=== PATIENT | male | born 1965 ===

== ENCOUNTER 2018-12-23 12:22 | Outpatient (REF) | payer OTHER, SELFPAY ==
[2018-12-23 21:40] LABS: Anion Gap 13.5 mmol/L (3-11); BUN 17 mg/dL (7-18); CO2 26.5 mmol/L (21.0-32.0); CREATININE 0.92 mg/dL (0.70-1.30); Calcium 9.1 mg/dL (8.5-10.1); Calculated LDL 148; Chloride 101 mmol/L (98-107); Cholesterol 222 mg/dL (50-200); Glucose 89 mg/dL (70-100); HDL Cholesterol 49 mg/dL (40-60); Potassium 3.6 mmol/L (3.5-5.1); Sodium 141 mmol/L (136-145); Triglyceride 129 mg/dL (30-150)
== END 2018-12-23 12:42 ==
LOC: NCHCN 12:22
PROVIDERS: PCP Internal Medicine; Visit Provider Internal Medicine
DX: I10 Essential (primary) hypertension (principal); Z13.220 Encounter for screening for lipoid disorders
CPT/HCPCS: 80048; 80061; 83721

== ENCOUNTER 2019-09-11 16:36 | Outpatient (REF) | payer OTHER, SELFPAY ==
[2019-09-11 21:01] LABS: Hemoglobin A1C 5.5 % (3.8-5.6)
[2019-09-11 21:28] LABS: Anion Gap 10.2 mmol/L (3-11); BUN 17 mg/dL (7-18); CO2 26.8 mmol/L (21.0-32.0); CREATININE 0.81 mg/dL (0.70-1.30); Calcium 8.7 mg/dL (8.5-10.1); Chloride 104 mmol/L (98-107); Glucose 103 mg/dL (74-106); Magnesium 1.8 mg/dL (1.8-2.4); Potassium 3.9 mmol/L (3.5-5.1); Sodium 141 mmol/L (136-145); Vitamin B12 323 pg/mL (193-986)
== END 2019-09-11 16:56 ==
LOC: NCHCN 16:36
PROVIDERS: PCP Internal Medicine; Visit Provider Nurse Practitioner Family
DX: I10 Essential (primary) hypertension (principal); Z13.1 Encounter for screening for diabetes mellitus; Z51.81 Encounter for therapeutic drug level monitoring
CPT/HCPCS: 80048; 82607; 83036; 83735

== ENCOUNTER 2020-02-12 14:22 | Outpatient (REF) | payer OTHER, SELFPAY ==
[2020-02-14 18:14] LABS: SARS-CoV-2 RNA Undetected (Undetected); SARS-CoV-2 Specimen Source Nasopharynx
== END 2020-02-12 14:42 ==
LOC: NCHCN 14:22
PROVIDERS: PCP Internal Medicine; Visit Provider Nurse Practitioner Family
DX: J34.89 Other specified disorders of nose and nasal sinuses (principal)
CPT/HCPCS: U0003

== ENCOUNTER 2020-07-23 13:54 | Outpatient (REF) | payer OTHER, SELFPAY ==
[2020-07-23 21:19] LABS: ALT 39 U/L (16-63); AST 18 U/L (15-37); Alkaline Phosphatase 51 U/L (46-116); Anion Gap 9.4 mmol/L (3-11); BUN 17 mg/dL (7-18); Bilirubin, Total 0.9 mg/dL (0.2-1.0); CO2 23.6 mmol/L (21.0-32.0); CREATININE 0.94 mg/dL (0.70-1.30); Calcium 9.1 mg/dL (8.5-10.1); Chloride 104 mmol/L (98-107); Glucose 97 mg/dL (74-106); Magnesium 1.9 mg/dL (1.8-2.4); Potassium 3.7 mmol/L (3.5-5.1); Sodium 137 mmol/L (136-145); Total Protein 7.3 g/dL (6.4-8.2)
[2020-07-23 22:02] LABS: Calculated LDL 137 mg/dL (<100); Cholesterol 231 mg/dL (<200); HDL Cholesterol 48 mg/dL (40-60); Triglyceride 233 mg/dL (<150); Vitamin B12 425 pg/mL (193-986)
== END 2020-07-23 14:14 ==
LOC: NCHCN 13:54
PROVIDERS: PCP Internal Medicine; Visit Provider Nurse Practitioner Family
DX: I10 Essential (primary) hypertension (principal); K21.9 Gastro-esophageal reflux disease without esophagitis; F41.1 Generalized anxiety disorder; F17.223 Nicotine dependence, chewing tobacco, with withdrawal; Z13.220 Encounter for screening for lipoid disorders
CPT/HCPCS: 80053; 80061; 82607; 83735

== ENCOUNTER 2021-02-04 21:13 | Outpatient (REF) | payer BC, SELFPAY ==
[2021-02-04 22:42] LABS: Hemoglobin A1C 5.6 % (<5.7)
[2021-02-04 22:48] LABS: ALT 29 U/L (16-63); AST 23 U/L (15-37); Albumin 3.8 g/dL (3.4-5.0); Alkaline Phosphatase 48 U/L (46-116); Anion Gap 10.6 mmol/L (3-11); BUN 20 mg/dL (7-18); Bilirubin, Total 0.9 mg/dL (0.2-1.0); CO2 25.4 mmol/L (21.0-32.0); CREATININE 1.1 mg/dL (0.70-1.30); Calcium 8.8 mg/dL (8.5-10.1); Calculated LDL 59 mg/dL (<100); Chloride 105 mmol/L (98-107); Cholesterol 151 mg/dL (<200); Glucose 81 mg/dL (74-106); HDL Cholesterol 59 mg/dL (40-60); Potassium 3.9 mmol/L (3.5-5.1); Sodium 141 mmol/L (136-145); Total Protein 6.8 g/dL (6.4-8.2); Triglyceride 165 mg/dL (<150)
== END 2021-02-04 21:14 | disposition home or self-care (01) ==
LOC: NCHCN 21:13
PROVIDERS: PCP Internal Medicine; Visit Provider Nurse Practitioner Family
DX: E78.5 Hyperlipidemia, unspecified (principal); I10 Essential (primary) hypertension; Z13.1 Encounter for screening for diabetes mellitus
CPT/HCPCS: 80053; 80061; 83036

== ENCOUNTER 2022-08-27 09:54 | Outpatient (REF) | payer OTHER, SELFPAY ==
[2022-08-27 14:28] LABS: ALT 28 U/L (16-63); AST 23 U/L (15-37); Alkaline Phosphatase 48 U/L (46-116); Anion Gap 8.4 mmol/L (3-11); BUN 16 mg/dL (7-18); CO2 25.6 mmol/L (21.0-32.0); CREATININE 0.9 mg/dL (0.70-1.30); Calcium 9.1 mg/dL (8.5-10.1); Chloride 107 mmol/L (98-107); Estimated GFR 99.62 (mL/min/1.73m2); Glucose 109 mg/dL (74-106); Sodium 141 mmol/L (136-145); Total Protein 7.1 g/dL (6.4-8.2)
[2022-08-27 14:54] LABS: COMMENT (LAB VIEW ONLY) 28.66 mg/dL; Microalb ug/mg Crea 4.5 ug/mg Cr
== END 2022-08-27 09:55 | disposition home or self-care (01) ==
LOC: NCHCN 09:54
PROVIDERS: PCP Internal Medicine; Visit Provider Nurse Practitioner Family
DX: I10 Essential (primary) hypertension (principal)
CPT/HCPCS: 80053; 82043; 82570

== ENCOUNTER 2023-07-26 16:40 | Outpatient (REF) | payer OTHER, SELFPAY ==
[2023-07-26 21:59] LABS: HCT 44.5 % (40.0-50.0); HGB 15.8 g/dL (13.5-17.5); MCH 32.3 pg (27.0-33.0); MCHC 35.5 % (32.0-36.0); MCV 91 fL (80-95); MPV 9.8 fL (8.0-11.0); Platelet Count 321 10^3/uL (130-400); RBC 4.89 10^6/uL (4.36-5.78); RDW 11.7 % (11.8-14.1); WBC 8.52 10^3/uL (4.4-10.8)
[2023-07-26 22:23] LABS: Hemoglobin A1C 5.2 % (<5.7)
[2023-07-26 22:37] LABS: Anion Gap 7.4 mmol/L (3-11); BUN 19 mg/dL (7-18); CO2 26.6 mmol/L (21.0-32.0); CREATININE 0.9 mg/dL (0.70-1.30); Calculated LDL 79 mg/dL (<100); Chloride 103 mmol/L (98-107); Cholesterol 173 mg/dL (<200); Estimated GFR 99.62 (mL/min/1.73m2); Glucose 107 mg/dL (74-106); HDL Cholesterol 77 mg/dL (40-60); Potassium 3.7 mmol/L (3.5-5.1); Sodium 137 mmol/L (136-145); Triglyceride 87 mg/dL (<150)
== END 2023-07-26 16:41 | disposition home or self-care (01) ==
LOC: NCHCN 16:40
PROVIDERS: PCP Internal Medicine; Visit Provider Nurse Practitioner Family
DX: I10 Essential (primary) hypertension (principal); E78.5 Hyperlipidemia, unspecified; R73.09 Other abnormal glucose; Z13.0 Encounter for screening for diseases of the blood and blood-forming organs and certain disorders involving the immune mechanism
CPT/HCPCS: 80048; 80061; 85027; 83036

== ENCOUNTER 2024-09-21 11:39 | Outpatient (REF) | payer OTHER, SELFPAY ==
[2024-09-21 14:17] LABS: HCT 47.1 % (40.0-50.0); HGB 16.2 g/dL (13.5-17.5); MCH 31.8 pg (27.0-33.0); MCHC 34.4 % (32.0-36.0); MCV 92 fL (80-95); MPV 9.7 fL (8.0-11.0); Platelet Count 262 10^3/uL (130-400); RDW 11.6 % (11.8-14.1); RDW-SD 39.3 fL; WBC 5.28 10^3/uL (4.4-10.8)
[2024-09-21 14:35] LABS: Hemoglobin A1C 5.4 % (<5.7)
[2024-09-21 14:37] LABS: ALT 30 U/L (16-63); AST 24 U/L (15-37); Albumin 3.9 g/dL (3.4-5.0); Alkaline Phosphatase 42 U/L (46-116); Anion Gap 9.6 mmol/L (3-11); BUN 17 mg/dL (7-18); Bilirubin, Total 0.8 mg/dL (0.2-1.0); CO2 25.4 mmol/L (21.0-32.0); CREATININE 0.9 mg/dL (0.70-1.30); Calcium 9.1 mg/dL (8.5-10.1); Chloride 107 mmol/L (98-107); Estimated GFR 98.38 (mL/min/1.73m2); Glucose 113 mg/dL (74-106); Sodium 142 mmol/L (136-145); Total Protein 7.2 g/dL (6.4-8.2)
== END 2024-09-21 11:40 | disposition home or self-care (01) ==
LOC: NCHCN 11:39
PROVIDERS: PCP Internal Medicine; Visit Provider Nurse Practitioner Family
DX: Z13.1 Encounter for screening for diabetes mellitus (principal); I10 Essential (primary) hypertension
CPT/HCPCS: 80053; 85027; 83036